=== PATIENT | female | born 1975 | race Caucasian/White ===

== ENCOUNTER 2021-02-19 14:00 | Outpatient (CLI) | payer BC ==
[2016-05-04 06:22] VITALS: BMI 29.8
[~2021-02-19 14:00] MED LIST: ALEVE220 MG PO; BIOTIN5 MG PO; CETIRIZINE HCL5 MG PO; DULERA 200 MCG8.8 GM INH; MULTIPLE VITAMI1 TA1 PO; OMEPRAZOLE40 MG PO; SINGULAIR10 MG PO; VALIUM 2 MG TAB2 MG PO
== END 2021-02-19 23:59 | disposition home or self-care (01) ==
LOC: D.MAMMO 14:00
PROVIDERS: ATTEND Family Medicine
DX: Z12.31 Encounter for screening mammogram for malignant neoplasm of breast (principal)